=== PATIENT | female | born 1995 | race African-American/Black ===

== ENCOUNTER 2023-07-26 20:33 | Emergency (ER) | payer OTHER, SELFPAY ==
[2023-07-26 20:33] VITALS: BP 144/80; PULSE 89; RESP 18; TEMP 36.5; O2SAT 99
[2023-07-26 20:44] VITALS: BP 155/90; PULSE 76; RESP 15; TEMP 36.4; O2SAT 99
--- NOTE | 2023-07-26 20:48 | ED_ITS ---
HPI - Dental/Oral General Chief complaint: Dental/Oral Stated complaint: teeth/shoulder pain and mouth rash Time Seen by Provider: 07/26/23 20:40 History of Present Illness HPI Narrative: Patient is a 28-year-old female who presents ER with dental pain. Began yesterday. Located tooth 1. Where she has a fractured tooth. No drainage. No facial swelling or difficulty breathing/swallowing. Mild sore throat. No ear pain. She reports that she has pain in her mouth it radiates to her shoulder but she has no exertional shoulder pain or jaw pain. No chest pain. pain improves with ibuprofen but then comes back when wears off. Related Data Allergies Allergy/AdvReac Type Severity Reaction Status Date / Time No Known Allergies Allergy Unverified 01/15/15 18:23 Review of Systems Constitutional: Constitutional: Denies chills and Denies fever(s) ENT: Denies nasal congestion and Reports sore throat Comments: +Dental pain Cardiovascular: Cardiovascular: Denies chest pain, Denies rapid heart rate and Denies radiating jaw, neck or arm pain Respiratory: Respiratory: Denies cough and Denies dyspnea PMFSH Past Medical History Medical History (Updated 07/26/23 @ 20:56 by Brandon Betancourt MD) Healthy female adult Exam Narrative: GENERAL: Well-appearing, morbidly obese, and in no acute distress. HEAD: Normocephalic, atraumatic. ENT: Mucous membranes moist. fractured tooth 1. With mild tenderness but no facial swelling or abscess. Normal appearing posterior oropharynx with midline uvula no tonsillar hypertrophy. NECK: Supple. CHEST: Clear to auscultation. No respiratory distress. HEART: Regular rate and rhythm. Normal peripheral pulses. NEURO: Alert and oriented x3. PSYCH: Normal mood and affect. Course Course Emergency Course: Discussed treatment plan, antibiotics prescribed, discharge home Vital Signs Vital signs: Vital Signs Temperature 97.7 F 07/26/23 20:33 Pulse Rate 89 07/26/23 20:33 Respiratory Rate 18 07/26/23 20:33 Blood Pressure 144/80 H 07/26/23 20:33 Pulse Oximetry 99 07/26/23 20:33 Oxygen Delivery Room Air 07/26/23 20:33 Temperature 97.5 F L 07/26/23 20:44 Pulse Rate 76 07/26/23 20:44 Respiratory Rate 15 07/26/23 20:44 Blood Pressure 155/90 H 07/26/23 20:44 Pulse Oximetry 99 07/26/23 20:44 Oxygen Delivery Room Air 07/26/23 20:33 Discharge Plan Discharge Clinical Impression: Toothache Patient Disposition: Home, Self-Care Condition: Stable Instructions: Toothache (ED) Additional Instructions: Return to the ER if you cannot swallow, you have fever over 101F, you cannot breathe, or you have additional concerns. Prescriptions: New amoxicillin-pot clavulanate 875-125 mg tablet 1 tablet PO Q12H Qty: 14 0RF Follow-up/Referrals: Dental Referral Line [Outside] - 1 Week PHYSICIAN,CONTINUITY MANAGER [Primary Care Provider] - Stand Alone Forms: Work/School Release IP
[2023-07-26] MEDS: AMOXICILLIN/CLAVULANATE K 875-125 MG TAB 1 TABLET PO (21:09)
== END 2023-07-26 21:12 | disposition home or self-care (01) ==
LOC: ANHED 21:05
PROVIDERS: Emergency Provider Emergency Medicine; PCP Family Medicine
DX: K08.89 Other specified disorders of teeth and supporting structures (principal)
CPT/HCPCS: 99283; A9270

== ENCOUNTER 2023-07-29 16:09 | Emergency (ER) | payer OTHER, SELFPAY ==
[2023-07-29 16:13] VITALS: BP 160/83; PULSE 98; RESP 18; TEMP 37.1; O2SAT 100
--- NOTE | 2023-07-29 18:05 | ED.GENADULT ---
HPI - General Adult General Chief complaint: Unspecified Stated complaint: right side of face pain? Time Seen by Provider: 07/29/23 18:04 History of Present Illness HPI narrative: Patient is a 28-year-old female here with dental pain. She states that she has broke her upper right molar about 1 month ago. Patient has been having intermittent pains since that time which worsened over the last week. Patient notes that she was seen here on 07/26, started on antibiotics for a dental infection and has been taking these antibiotics. Patient notes pain continues to worsen and shoots down into her neck and right upper chest. She denies any cough or shortness of breath. Denies any fevers. She denies any facial swelling. She has not had any trouble breathing or swallowing, she has not had any change in her voice. She is very tearful on exam and does note that she has been taking an excessive amount of ibuprofen to help with the pain which is not working. She initially got in with a dental appointment next month however after being seen on she was able to pump that appointment up to this weekend in 2 days. Related Data Allergies Allergy/AdvReac Type Severity Reaction Status Date / Time No Known Allergies Allergy Unverified 07/29/23 16:09 Review of Systems Review of Systems: All systems reviewed & are unremarkable except as noted in HPI and below PMFSH Past Medical History Medical History (Updated 07/29/23 @ 20:12 by Nora Bush MD) Healthy female adult Exam Narrative: GENERAL: Well-appearing, well-nourished, and in no acute distress. Tearful. HEAD: Normocephalic, atraumatic. EYES: PERRLA and EOMI. ENT: Nares clear. Mucous membranes moist. Broken tooth #1 with no discharge or obvious abscess. No facial swelling appreciated. No pharyngeal swelling, no uvular deviation. NECK: Supple. CHEST: Clear to auscultation. No respiratory distress. HEART: Regular rate and rhythm. Normal peripheral pulses. ABDOMEN: Soft, nontender, nondistended. EXTREMITIES: Normal range of motion. No edema. SKIN: Warm, dry, no rash. NEURO: No focal deficits. Alert and oriented x3. PSYCH: Normal mood and affect. Course Course Emergency Course: Chart review performed. Patient here with right sided facial pain, shoulder pain, chest pain. Triage vitals show HTN, otherwise normal. Afebrile. She had an ED visit here on 07/26, note reviewed. She was seen here for dental pain, tooth 1 where she had a fractured tooth. She was started on Augmentin and referred to dentist. Patient seen evaluated, nontoxic appearing. She is tearful on exam. Her chest wall is nontender, neck nontender, full neck range of motion. Suspect this is continued pain from her broken tooth with dental infection and having radicular pain. EKG performed and negative. test negative. Will do dose of [place]. She does have a dental appointment in 2 days. Patient re-evaluated, significant pain improvement with [place]. Will discharge her on short course to get her to her appointment on Wednesday. The results of pertinent diagnostic studies and exam findings were discussed. The patient?s provisional diagnosis and plan of care were discussed with the patient and present family. The patient and/or present family expressed understanding of the diagnosis and plan. The nurse was instructed to provide written instructions and appropriate follow-up information. The patient understands their need and responsibility to obtain additional follow-up as instructed. The risks of medications administered and prescribed were discussed with the patient and family present. Vital Signs Vital signs: Vital Signs Temperature 98.7 F 07/29/23 16:13 Pulse Rate 98 07/29/23 16:13 Respiratory Rate 18 07/29/23 16:13 Blood Pressure 160/83 H 07/29/23 16:13 Pulse Oximetry 100 07/29/23 16:13 Temperature 98.7 F 07/29/23 16:13 Pulse Rate 98 07/29/23 16:13 Respiratory Rate 18
--- NOTE | 2023-07-29 18:30 | ECG_ITS ---
Measurements Intervals [place] Rate: 83 P: 23 [place]: 139 QRS: 63 QRSD: 105 T: 28 QT: 340 QTc: 400 Interpretive Statements SINUS RHYTHM NO PREVIOUS ECG AVAILABLE FOR COMPARISON Electronically Signed On 07-30-2023 16:30:31 CLIENT DELIVERY SPECIALIST by Nena Pat M.D.
[2023-07-29] MEDS: oxyCODONE HCL (*CRX) 5 MG TAB IR PO (19:20)
== END 2023-07-29 20:29 | disposition home or self-care (01) ==
PROVIDERS: Emergency Provider Student in an Organized Health Care Education/Training Program; PCP Family Medicine
DX: K08.89 Other specified disorders of teeth and supporting structures (principal)
CPT/HCPCS: 81025; 93005; 99283; A9270

== ENCOUNTER 2023-10-06 12:06 | Emergency (ER) | payer OTHER, SELFPAY ==
[2023-10-06 12:15] VITALS: BP 135/76; PULSE 86; RESP 16; TEMP 37; O2SAT 100
--- NOTE | 2023-10-06 14:09 | ED.ABDPAIN ---
HPI - Abdominal Pain General Chief Complaint: Abdominal Pain Stated Complaint: abdominal pain Time Seen by Provider: 10/06/23 13:34 History of Present Illness HPI narrative: Patient is a healthy 28-year-old female here with vaginal bleeding and lower abdominal cramping pain. She states that this began about 3 days ago. She did previously use the Depo-Provera shot but stopped using this recently and this is her 1st menstrual cycle since discontinuing Depo. She notes the bleeding is heavy, denies passage of clots. She does note that she has had excessive vaginal bleeding in the past regarding blood transfusion. She is sexually active, had unprotected sex with a new partner 2-3 weeks ago. She note that she took Plan B after this interaction. She denies any vaginal bleeding, denies any vaginal discharge, vaginal pain or genital sores. Prior history of gonorrhea which was treated in the past. No chest pain, shortness of breath, lightheadedness. Related Data Allergies Allergy/AdvReac Type Severity Reaction Status Date / Time No Known Allergies Allergy Verified 10/06/23 12:16 Review of Systems Review of Systems: All systems reviewed & are unremarkable except as noted in HPI and below PMFSH Past Medical History Medical History (Updated 10/06/23 @ 19:11 by Nora Bush MD) Healthy female adult Exam Narrative: GENERAL: Well-appearing, well-nourished, and in no acute distress. HEAD: Normocephalic, atraumatic. EYES: PERRLA and EOMI. ENT: Nares clear. Mucous membranes moist. NECK: Supple. CHEST: Clear to auscultation. No respiratory distress. HEART: Regular rate and rhythm. Normal peripheral pulses. ABDOMEN: Soft, mild suprapubic tenderness without rebound or guarding., nondistended. : Exam performed with RN as lead c developer. Nontender speculum exam with mild bleeding in the vaginal vault. Cervix appears normal. No genital lesions appreciated. EXTREMITIES: Normal range of motion. No edema. SKIN: Warm, dry, no rash. NEURO: No focal deficits. Alert and oriented x3. PSYCH: Normal mood and affect. Course Course Emergency Course: Chart review performed, here with lower abdominal cramps and blood in her urine. Triage vitals normal. Patient seen evaluated, nontoxic appearing. Given prior history of need for blood transfusion due to heavy vaginal bleeding will do basic lab work to evaluate for possible anemia. Will perform pelvic exam. Will additionally send UA, urine test as well as urine testing for gonorrhea, chlamydia, Trichomonas. Patient agreeable to workup. Pelvic exam shows small amount of blood. Hemoglobin is stable. patient is positive for Trichomonas. Will treat her for Trichomonas, gonorrhea, chlamydia as these other 2 tests are still pending at this time. Patient requesting be discharged home. The results of pertinent diagnostic studies and exam findings were discussed. The patient?s provisional diagnosis and plan of care were discussed with the patient and present family. The patient and/or present family expressed understanding of the diagnosis and plan. The nurse was instructed to provide written instructions and appropriate follow-up information. The patient understands their need and responsibility to obtain additional follow-up as instructed. The risks of medications administered and prescribed were discussed with the patient and family present. Vital Signs Vital signs: Vital Signs Temperature 98.6 F 10/06/23 12:15 Pulse Rate 86 10/06/23 12:15 Respiratory Rate 16 10/06/23 12:15 Blood Pressure 135/76 10/06/23 12:15 Pulse Oximetry 100 10/06/23 12:15 Temperature 98.6 F 10/06/23 12:15 Pulse Rate 86 10/06/23 12:15 Respiratory Rate 16 10/06/23 12:15 Blood Pressure 135/76 10/06/23 12:15 Pulse Oximetry 100 10/06/23 12:15 MDM - Abdominal Pain Lab Data 10/06/23 16:58 10/06/23 16:58 Labs: Lab Results 10/06/23
[2023-10-06 15:21] LABS: Appearance Urine Cloudy (Clear); Bacteria Urine None Seen /hpf; Bilirubin Urine Negative (Negative); Blood Urine 3+ (Negative); Color Urine Dark Yellow (Yellow); Glucose Urine UA Negative (Negative); Ketones Urine Trace mg/dL (Negative); Leukocyte Esterase Ur Trace LEU/UL (Negative); Nitrate Urine Negative (Negative); Non Pathogenic Casts 0-2; Protein Urine 1+ mg/dL (Negative); RBC Urine >100 /hpf (0-2); Specific Grav Ur 1.029 (1.001-1.035); Squamous Epithelial Cell Urine None seen /hpf (Few); WBC Urine 21-50 /hpf
[2023-10-06 15:24] LABS: Add Urine Microscopic? YES
[2023-10-06 17:09] LABS: Basophils Percent Auto 0.1 % (0.2-1.2); Eosinophils Absolute Auto 0.1 K/mm3 (0-0.3); Hematocrit 46.6 % (37.0-47.0); Immature Granulocyte Absolute 0.01 K/mm3 (0.00-0.031); Immature Granulocyte Percent A 0.1 % (0-0.5); Lymphocytes Percent Auto 44.4 % (18.3-44.2); Mean Corpuscular HGB Conc 32.2 g/dl (32-36); Mean Corpuscular Hemoglobin 29.5 pg (26-34); Mean Corpuscular Volume 91.7 fl (80-100); Mean Platelet Volume 9.3 fl (7.4-10.4); Monocytes Absolute Auto 0.4 K/mm3 (0.1-0.6); Monocytes Percent Auto 5.5 % (2.6-8.5); Neutrophils Absolute Auto 3.3 K/mm3 (1.3-6.7); Neutrophils Percent Auto 48.9 % (45.5-73.1); Platelet Count Result 381 k/mm3 (150-375); Red Blood Count 5.08 M/mm3 (4.2-5.4); Red Cell Distribution Width 13.3 % (11.5-14.5); White Blood Count 6.8 K/mm3 (4.5-10.0)
[2023-10-06 17:31] LABS: Alanine Aminotransferase 34 U/L (6-35); Albumin Level 4.4 g/dL (3.5-5.1); Alkaline Phosphatase 71 U/L (38-126); Anion Gap 8 mmol/L (8-16); Aspartate Amino Transferase 34 U/L (14-36); Bilirubin,Total 0.8 mg/dL (0.2-1.3); Blood Urea Nitrogen 9 mg/dL (7-17); Calcium 9.1 mg/dL (8.4-10.2); Carbon Dioxide 25 mmol/L (22-30); Chloride 103 mmol/L (98-107); Estimated CRCL calculation 134 ml/min; Estimated Glomerular Filt Rate > 60; Glucose 95 mg/dL (65-110); Potassium 3.7 mmol/L (3.4-5.0); Sodium 136 mmol/L (137-145)
[2023-10-06 18:47] LABS: Trichomonas Vag PCR DETECTED (NOT DETECTE)
[2023-10-06 19:18] LABS: Chlamydia trachomatis NOT DETECTED (NOT DETECTE); Neisseria gonorrhoeae PCR NOT DETECTED (NOT DETECTE)
[2023-10-06] MEDS: metroNIDAZOLE 500 MG TABLET 2000 MG PO (19:35)
[2023-10-06] MEDS: AZITHROMYCIN 250 MG TABLET 1000 MG PO (19:35)
[2023-10-06] MEDS: cefTRIAXone 1 GM VIAL 0.5 GM IM (19:36)
[2023-10-06 19:39] VITALS: BP 121/82; PULSE 70; RESP 16; O2SAT 100
== END 2023-10-06 19:41 | disposition home or self-care (01) ==
PROVIDERS: Emergency Provider Student in an Organized Health Care Education/Training Program; PCP Family Medicine
DX: R10.2 Pelvic and perineal pain (principal); A59.01 Trichomonal vulvovaginitis; N93.8 Other specified abnormal uterine and vaginal bleeding
CPT/HCPCS: 36415; 80053; 81001; 85025; 86850; 86900; 86901; 87077; 87086; 87088; 87491; 87591; 87661; 96372; 99284; A9270; J0696